=== PATIENT | male | born 1990 | race Caucasian/White ===

== ENCOUNTER 2024-01-12 19:16 | Emergency (ER) | payer MEDICAID ==
[~2024-01-12] VITALS: Ht 182.9 cm; Wt 93.2 kg
[2024-01-12 19:35] VITALS: TEMP 98
[2024-01-12 21:58] LABS: BILIRUBIN,URINE NEGATIVE (Neg); CLARITY,URINE CLEAR (Clear); COLOR,URINE YELLOW (Yellow); GLUCOSE, URINE >=1000 mg/dl (Neg); KETONES,URINE 15 mg/dl (Neg); LEUKOCYTE ESTERASE ,URINE NEGATIVE (Neg); NITRITES, URINE NEGATIVE (Neg); OCCULT BLOOD,URINE TRACE-INTACT (Neg); PROTEIN,URINE NEGATIVE (Neg); UROBILINOGEN,URINE 0.2 E.U/dL (0.2-1.0)
[2024-01-12 22:02] LABS: BASOPHILS % (AUTO) 0.3 % (0-1); EOSINOPHILS % (AUTO) 0.4 % (0-6); HEMATOCRIT 46.8 % (42.0-52.0); HEMOGLOBIN 16.2 g/dl (14.0-17.9); LYMPHOCYTES # (AUTO) 1.9 X10'3 (1.1-4.8); LYMPHOCYTES % (AUTO) 17.6 % (21-51); MEAN CORPUSCULAR HEMOGLOBIN 31.4 PG (27.0-31.0); MEAN CORPUSCULAR HGB CONC 34.5 g/dL (33.0-36.5); MEAN CORPUSCULAR VOLUME 90.8 FL (78-98); MEAN PLATELET VOLUME 11.7 FL (7.4-10.4); MONOCYTES # (AUTO) 1.2 X10'3 (0-0.9); MONOCYTES % (AUTO) 10.9 % (2-12); NEUTROPHILS # (AUTO) 7.8 X10'3 (1.8-7.7); NEUTROPHILS % (AUTO) 70.8 % (42-75); PLATELET COUNT 151 X10'3 (140-440); RED BLOOD COUNT 5.16 X10'6 (4.70-6.10); RED CELL DISTRIBUTION WIDTH 12.9 % (11.5-14.5); WHITE BLOOD COUNT 11.1 X10'3 (4.5-11.0)
[2024-01-12 22:02] LABS: UA COLLECTION TYPE CLN CATCH MIDSTREAM
[2024-01-12] MEDS: azithromycin 250mg tablet PO ONE (22:15)
[2024-01-12] MEDS: CefTRIAXone 500MG IM Kit w/LIDOcaine IM ONE (22:16)
[2024-01-12] MEDS ORDERED: CEPH-585 PO (22:16)
[2024-01-12] MEDS ORDERED: IBUP-1985 PO (22:16)
[2024-01-12] MEDS ORDERED: DOXY-1 PO (22:16)
[2024-01-12 22:23] LABS: BACTERIA,URINE FEW /HPF (Neg); MUCUS STRANDS NONE SEEN /LPF (Neg); RBC,URINE 0-2 /HPF (0-2); SQUAMOUS EPITHELIAL CELL,UR FEW /LPF (FEW); WBC,URINE 0-4 /HPF (0-4)
[2024-01-12 22:31] VITALS: BP 129/98; PULSE 81; RESP 14; O2SAT 100
[2024-01-12 22:41] LABS: LARGE PLATELETS FEW; PLATELET ESTIMATE NORMAL; STOMATOCYTES FEW
== END 2024-01-12 22:33 | disposition home or self-care (01) ==
LOC: ER 19:17
DX: N45.2 Orchitis (principal); R73.9 Hyperglycemia, unspecified
CPT/HCPCS: 36415; 76870; 81001; 82948; 85008; 85025; 93976; 96372; 99285; J0696